=== PATIENT | female | born 2000 | race Caucasian/White ===

== ENCOUNTER → 2024-01-28 13:25 | Outpatient (REF) | payer OTHER, SELFPAY | LOC: RAD 13:25 | PROVIDERS: ATTENDING PHYSICIAN Nurse Practitioner Family | DX: R22.41 Localized swelling, mass and lump, right lower limb (principal) | CPT/HCPCS: 73590 ==

== ENCOUNTER → 2024-02-16 13:26 | Outpatient (REF) | payer OTHER, SELFPAY | LOC: HWRAD 13:26 | PROVIDERS: ATTENDING PHYSICIAN Nurse Practitioner Family | DX: R22.1 Localized swelling, mass and lump, neck (principal) | CPT/HCPCS: 76536 ==

== ENCOUNTER 2024-03-27 22:28 | Emergency (ER) | payer OTHER, SELFPAY ==
[2024-03-27 22:28] VITALS: BMI 38.8
[2024-03-27 22:29] VITALS: BP 114/90
[2024-03-27 23:54] VITALS: BP 95/59
[2024-03-28] VITALS: BP 106/71
--- NOTE | 2024-03-28 00:03 | ED.GENMED ---
History of Present Illness
General
Chief Complaint: Medication Reaction
Source: patient
Exam Limitations: none
Time Seen by Provider: 03/27/24 23:44
History of Present Illness
History of Present Illness:
This is 23 year old female that comes in with c/o nausea, dizziness and abd cramping. States that she was started on Ability 5 days ago. States that she had read that these were some of the side affects. Then tonight she took her Abilify and she
started feeling hot, abd cramping and nausea with dizziness. States that know she is having a panic attack and has some chest discomfort and is hyperventilating. Denies any fever, chills, SOB, vomiting, diarrhea, headache, urinary burning.
Past History
Past History
ED Past Medical History: Psychiatric (Depression, Anxiety, ); Negative Asthma, HTN, Hypercholesterolemia or NIDDM
ED Past Surgical History: None
Social History
Tobacco: Non-smoker
Alcohol: Occasional
Drug: None
Personal: Single
Living: with family
Employment: Student
Family History
Family History: Other (Noncontributory)
Review of Systems
Review of Systems
All Other Systems: ROS reviewed and negative except as documented in HPI and ROS
Constitutional: Reports no symptoms; Denies fever or chills
EENT: Reports no symptoms
Respiratory: Denies cough or trouble breathing
Cardiac: Reports chest pain
ABD/GI: Reports abdominal pain (Cramping) and nausea; Denies vomiting or diarrhea
: Reports no symptoms; Denies dysuria, frequency or urgency
Musculoskeletal: Reports no symptoms
Skin: Reports no symptoms
Neurological: Reports dizzy (She is spinning); Denies headache
Psychiatric: Reports anxiety
Phy Exam
General Physical Exam
General Presentation: mild distress
General age: appears stated age
General Skin: warm and dry
General Habitus: normal
General Mental: anxious (Hyperventilating)
General Hydration: appears well hydrated
ENT Exam
ENT Exam: TM's normal, pharynx normal and neck supple
Eye Exam
Eye Exam: EOMI
Cardiovascular Exam
Cardiovascular Exam: regular rate/rhythm, no edema and normal peripheral pulses
Pulmonary Exam
Pulmonary Exam: lungs clear, no respiratory distress, no rales, chest non tender, no crackles, no rhonchi, no wheezing and no cough
Gastrointestinal Exam
Gastrointestinal Exam: normal bowel sounds, non tender, soft, no organomegaly, no pulsatile mass and non distended
Musculoskeletal Exam
Musculoskeletal Exam: full ROM and no edema
Skin Exam
Skin Exam: normal color, warm/dry, no rash and no petechia
Psychiatric Exam
Psychiatric Exam: anxious
Course
Orders/Labs/Results
Orders:
Orders
03/28/24 00:02
Ketorolac [Toradol] 30 mg IV NOW STA
Lorazepam [Ativan] 0.5 mg IV NOW STA
03/28/24 00:03
Test Result ONCE
03/28/24 00:18
Complete Blood Count/With Diff Urgent
Comprehensive Metabolic Panel Urgent
HCG, Serum Qualitative Screen Urgent
Abnormal Lab Results
03/28/24
00:18
WBC 11.9 H 10^3/uL
(4.8-10.8)
Plt Count 473 H 10^3/uL
(130-400)
Carbon Dioxide 21 L mmol/L
(22-30)
ALT 38 H U/L
(0-35)
03/28/24 00:18
03/28/24 00:18
Vital Signs
Initial and Last Documented VS:
Initial Vital Signs
Temp Pulse Resp BP Pulse Ox
98.8 F 94 26 114/90 98
03/27/24 22:29 03/27/24 22:29 03/27/24 22:29 03/27/24 22:29 03/27/24 22:29
Last Documented Vital Signs
Temp Pulse Resp BP Pulse Ox
98.8 F 94 26 95/59 100
03/27/24 22:29 03/27/24 22:29 03/27/24 22:29 03/27/24 23:54 03/27/24 23:54
MDM/Problems Addressed
Differential Diagnosis Includes:
Anxiety, Panic disorder
MDM/Problems Addressed:
This is a 23 year old female that comes in with c/o a reaction to ability. States that she started 5 days ago and then tonight she got hot after taking her dose of 1mg. Started with abd cramping nausea, and dizziness.
Will check labs. Medicate for her Panic attack and recheck.
Back into see patient. Patient is feeling better. Will have patient contact her PCP and decide if she needs to stop the ability or decrease the dosage first. Patient to return with any concerns.
Chronic conditions affecting care: Psychiatric illness
Acute Exacerbation and/or Progression of Chronic Illness: Psychiatric illness
*Pulse Oximetry
Patient hypoxic: no
*EKG
Interpreted by ED Provider?: NA
Rate: EKG- N/A
*Coal [employer] Operator Interpretation
Rate: [employer] Operator- N/A
*Critical Care Note
Total Time (30-74mins, 75-104mins- exclusive of procedures): Not Applicable
ED Attending Note
-
Portions of this chart may have been created with voice recognition software.� Occasional wrong word or��sound alike� substitutions may have occurred due to the inherent limitations of voice recognition software.
Discharge Plan
Departure
Patient Disposition: Home (Routine Discharge)
Date of Disposition: 03/28/24
Time of Disposition: 01:11
Patient with high blood pressure during this ER visit?: No
Condition: Good
Covid-19: Not Applicable
Discharge Problem:
Panic attack, Possible medication reaction
Instructions: Panic Disorder (DC)
Prescriptions:
No Action
famotidine 20 MG tablet
20 mg PO BID Qty: 60 0RF
cephalexin 500 MG capsule
500 mg PO BID Qty: 14 0RF
escitalopram oxalate [Lexapro] 20 mg tablet
20 mg PO DAILY Qty: 30 0RF
Referrals:
Lisa Lackey MD [Family Provider] - Call in 1-3 days for appt
Activity Restrictions/Additional Instructions:
As discussed, your blood work shows that your WBC are slightly elevated. This can happen due to the anxiety. Please call your family doctor tomorrow and discuss with them if you are to stop your medication or to slowly decrease the dosage until you
are off the Abilify. IF YOU HAVE ANY OTHER CONCERNS PLEASE RETURN TO THE EMERGENCY ROOM.
Interventions
Interventions:
*Risk Screen - Suicide Last Done: 03/27/24 22:29
*Neglect/Abuse Screening Last Done: 03/27/24 22:29
ED- Fall Risk Assessment Last Done: 03/27/24 23:57
ED-Skin Assessment Last Done: 03/27/24 23:57
ED- Pulmonary Assessment Last Done: 03/27/24 23:57
ED-EENT Assessment Last Done: 03/27/24 23:57
Discharge Date and Time
Print Language: PARAGUAYAN
[2024-03-28] MEDS: ATIVAN 0.5 MG IV (00:14)
[2024-03-28] MEDS: TORADOL 30 MG IV (00:15)
[2024-03-28 00:37] LABS: HCG, Serum Qualitative Screen Negative
[2024-03-28 00:45] LABS: ALT (SGPT) 38 U/L (0-35); AST (SGOT) 31 U/L (14-36); Albumin 4.6 g/dl (3.5-5.0); Alkaline Phosphatase 84 U/L (38-126); Blood Urea Nitrogen 15 mg/dl (7-17); Calcium 10.2 mg/dl (8.4-10.2); Carbon Dioxide 21 mmol/L (22-30); Chloride 104 mmol/L (98-107); Estimated Creatinine Clearance > 125 ml/min; Glucose 91 mg/dl (70-99); Hematocrit 39.9 % (37.0-47.0); Mean Corp Hgb Conc. 35.1 g/dL (33.0-37.0); Mean Corpuscular Hgb 28.6 pg (27.0-31.0); Mean Corpuscular Volume 81.4 fL (81.0-99.0); Mean Platelet Volume 8.9 fL (7.4-10.4); Platelet Count 473 10^3/uL (130-400); Potassium 3.7 mmol/L (3.5-5.1); Red Cell Dist. Width 12.2 % (11.5-14.5); Sodium 138 mmol/L (135-145); Total Bilirubin 0.5 mg/dl (0.2-1.3); Total Protein 7.4 g/dl (6.3-8.2); White Blood Cell Count 11.9 10^3/uL (4.8-10.8); eGFR > 60.00
[2024-03-28 01:15] VITALS: BP 108/78
[2024-03-28 01:31] LABS: % Basophils 0.5 % (0-2); % Eosinophils 1.1 % (0-6); % Lymphocytes 41.6 % (20.5-51.1); % Neutrophils 46.8 % (42.2-75.2); Absolute Basophils 0.1 10^3/uL (0-0.2); Absolute Eosinophils 0.1 10^3/uL (0-0.7); Absolute Immature Granulocytes 0.1 10^3/uL (0-0.05); Absolute Monocytes 1.1 10^3/uL (0.1-0.6); Absolute Neutrophils 5.6 10^3/uL (1.4-6.5); Nucleated Red Blood Cells % 0 %
== END 2024-03-28 01:31 | disposition home or self-care (01) ==
LOC: EMR 22:28
PROVIDERS: Clinical Nurse Specialist Family Health; EMERGENCY PHYSICIAN Emergency Medicine; FAMILY PHYSICIAN Family Medicine
DX: F41.0 Panic disorder [episodic paroxysmal anxiety] (principal)
CPT/HCPCS: 99284; 96374; 96375; 80053; 84703; 85025

== ENCOUNTER → 2024-10-04 10:16 | Outpatient (REF) | payer OTHER, SELFPAY | LOC: RAD 10:16 | PROVIDERS: ATTENDING PHYSICIAN Family Medicine | DX: M25.571 Pain in right ankle and joints of right foot (principal) | CPT/HCPCS: 73590; 73610; 73630 ==